=== PATIENT | female | born 1990 | race American Indian/Alaskan Native ===

== ENCOUNTER 2018-03-27 16:25 | Emergency (ER) | payer SELFPAY ==
[2018-03-27 16:28] VITALS: BMI 32.0
--- NOTE | 2018-03-27 17:34 | DI.RAD.S_ITS ---
PROCEDURE: XR HAND RT MIN 3V INDICATIONS: index finger infection TECHNIQUE: 3 views of the hand(s) acquired. COMPARISON: None. FINDINGS: Bones: No fractures or dislocations. Carpal bones are normally aligned. No suspicious bony lesions. Soft tissues: There is soft tissue swelling of the second right digit. IMPRESSION: Second right digit soft tissue swelling. No underlying bony abnormality. No unexpected radiopaque foreign body. No findings to suggest osteomyelitis; however plain film is less sensitive in the acute phases of osteomyelitis. If there is high clinical suspicion for acute osteomyelitis, MRI with and without contrast is recommended. Dictated by: Mahnaz Paez M.D. on 03/27/2018 at 17:46 Approved by: Mahnaz Paez M.D. on 03/27/2018 at 17:47
[2018-03-27 18:00] VITALS: BP 111/78; PULSE 69; RESP 15; TEMP 37.2; O2SAT 100
--- NOTE | 2018-03-27 18:45 | ED.UPPEXIN ---
HPI - Extremity Injury (Upper) <Rosa Isela Salcido PA-C - Last Filed: 03/27/18 22:48> General Chief Complaint: Extremity Injury, Upper Stated Complaint: index finger right hand previous wound,not healing Time Seen by Provider: 03/27/18 17:34 Source: patient Mode of arrival: ambulatory Limitations: no limitations History of Present Illness HPI narrative: This 27-year-old female comes in due to possible worsening of her right index finger infection. She states that 03/12, she cut her finger on some sharp metal carts at work. She was seen at a local ED in [place] and 8 stitches were placed. She was put on Keflex, which she finished a couple of days ago. She states that the finger seemed okay, however just after she finished the antibiotic she noticed it started to get more painful with some activities such as washing dishes, and this morning it appeared to be draining some pus. She was seen by her PCP today, culture taken, and she was started on Bactrim. She was advised that she needed to return to the clinic or be seen right away if she was worse or loss sensation in her finger. It is feeling somewhat numb and tingly compared to her other fingers, so she comes to the ED tonight. She has not had acute worsening in redness, no weakness. No new fever or other new symptoms this evening. She just took the 1st dose of antibiotic this morning Related Data Home Medications Medication Instructions Recorded Confirmed BUPRENORPHINE/NALOXONE (SUBOXONE) #0 04/01/12 Allergies Allergy/AdvReac Type Severity Reaction Status Date / Time No Known Drug Allergies Allergy Verified 03/27/18 16:28 Review of Systems <Rosa Isela Salcido PA-C - Last Filed: 03/27/18 22:48> Review of Systems All systems reviewed & are unremarkable except as noted in HPI and below PFSH <Rosa Isela Salcido PA-C - Last Filed: 03/27/18 22:48> Comment: Patient notes history of polysubstance abuse, resolved after treatment 09/02. No EtOH. Smokes cigarettes daily Exam <JEN Cortés Last Filed: 03/27/18 22:48> Narrative Exam Narrative: GENERAL APPEARANCE: Patient sitting comfortably, in no distress. LUNGS: Clear to auscultation bilaterally. HEART: Rate and rhythm regular without murmur, normal S1 and S2, no S3 or S4. DERMATOLOGIC: Erythema and moderate edema over the right index finger dorsal surface, most concentrated around the PIP joint, less so to the MC joint. This does not extend to the palmar surface or finger tip. There is a central partly open superficial wound, no drainage expressed MUSCULOSKELETAL: Right pointer finger strength is intact against resistance in all ferrer. Slightly reduced flexion at the PIP joint secondary to edema NEUROVASCULAR: Right hand fingers are warm and pink with brisk cap refill, right pointer finger sensation is grossly intact Initial Vital Signs Initial Vital Signs: Vital Signs Temperature 98.9 F 03/27/18 18:00 Pulse Rate 69 03/27/18 18:00 Respiratory Rate 15 03/27/18 18:00 Blood Pressure 111/78 03/27/18 18:00 Pulse Oximetry 100 03/27/18 18:00 <DO Josh Godoy Last Filed: 03/28/18 06:51> Initial Vital Signs Initial Vital Signs: Vital Signs Temperature 98.9 F 03/27/18 18:00 Pulse Rate 69 03/27/18 18:00 Respiratory Rate 15 03/27/18 18:00 Blood Pressure 111/78 03/27/18 18:00 Pulse Oximetry 100 03/27/18 18:00 Course <Rosa Isela Salcido PA-C - Last Filed: 03/27/18 22:48> Orders Ordered: ED Orders 03/27/18 17:34 XR hand RT min 3V Stat Vital Signs - 8 hr 03/27/18 18:00 Temperature 98.9 F Pulse Rate 69 Respiratory Rate 15 Blood Pressure [Left Arm] 111/78 Pulse Oximetry 100 <DO Josh Godoy Last Filed: 03/28/18 06:51> Orders Ordered: ED Orders 03/27/18 17:34 XR hand RT min 3V Stat Vital Signs - 8 hr 03/27/18 18:00 Temperature 98.9 F Pulse Rate 69 Respiratory Rate 15 Blood Pressure [Left Arm] 111/78 Pulse Oximetry 100 MDM - Extremity Injury (Upper) <JEN Cortés Last Filed: 03/27/18 22:48> Imaging Data hand: Radiologist's impression: [address] [address] XRay Report Signed Patient: Leonor Diez TMR#: [id number] : 1990Acct:[id number] Age/Sex: 27 / FDate of Service: 03/27/18 Loc: ED Accession Number: [id number] Procedure: XR hand RT min 3V Ordering Provider: Kaiden Washington D.O. PROCEDURE: XR HAND RT MIN 3V INDICATIONS: index finger infection TECHNIQUE: 3 views of the hand(s) acquired. COMPARISON: None. FINDINGS: Bones: No fractures or dislocations. Carpal bones are normally aligned. No suspicious bony lesions. Soft tissues: There is soft tissue swelling of the second right digit. IMPRESSION: Second right digit soft tissue swelling. No underlying bony abnormality. No unexpected radiopaque foreign body. No findings to suggest osteomyelitis; however plain film is less sensitive in the acute phases of osteomyelitis. If there is high clinical suspicion for acute osteomyelitis, MRI with and without contrast is recommended. Dictated by: Mahnaz Paez M.D. on 03/27/2018 at 17:46 Approved by: Mahnaz Paez M.D. on 03/27/2018 at 17:47 Discharge Plan Departure Patient Disposition: Home Clinical Impression: Cellulitis of finger of right hand Discharge Date/Time: 03/27/18 19:10 Interventions: ED Discharge Assessment Last Done: 03/27/18 19:15 Instructions: DI for Cellulitis -- Adult Activity Restrictions/Additional Instructions: Please return if you have acutely worsening redness, pain or swelling, i.e. spreading around the other side of the hand, wrist, etc. Otherwise, please continue the antibiotic that you were prescribed this morning as it will take 48-72 hours to see your response. Keep the wound open when you are sitting and relax, otherwise covered when you are working or could bump it. Call 1st thing in the morning and make sure you have a follow-up with your clinic scheduled on Sunday to reassess after a couple of days on the antibiotic and review the culture results. As we talked about, you may need further testing or medication change if this is not improving. Prescriptions: No Action BUPRENORPHINE/NALOXONE (SUBOXONE) Qty: 0 RF: 0 Referrals: Iwona Pennington MD [Primary Care Provider] - Yonathan Garcia PA-C [Non-Staff] - <Tammi Rubio DO - Last Filed: 03/28/18 06:51> Cosign ED Attending Cosignature Attestation: I was immediately available in the department for consultation. This documentation has been reviewed and I agree with assessment and plan. Supervised by Tammi Rubio DO
== END 2018-03-27 19:10 | disposition home or self-care (01) ==
PROVIDERS: Emergency Provider Internal Medicine; PCP Family Medicine
DX: L03.011 Cellulitis of right finger (principal)
CPT/HCPCS: 73130; 99282; 99283